=== PATIENT | female | born 1995 ===

== ENCOUNTER 2020-12-18 11:10 | Day surgery (SDC) | payer OTHER | END 2020-12-18 19:50 | disposition home or self-care (01) | LOC: CIR.AMB 11:10 | PROVIDERS: ATTEND Orthopaedic Surgery | DX: S53.31XA Traumatic rupture of right ulnar collateral ligament, initial encounter (principal); M25.321 Other instability, right elbow; Z20.822 Contact with and (suspected) exposure to COVID-19 ==